=== PATIENT | female | born 1980 | race Hispanic/Latino ===

== ENCOUNTER 2021-02-21 14:43 | Emergency (ER) | payer OTHER ==
[~2021-02-21] VITALS: Ht 157.5 cm; Wt 89.8 kg
[2021-02-21] MEDS ORDERED: KETOROLAC TROMETHAMINE 30 MG/ML VIAL IV STA (15:04)
[2021-02-21] MEDS ORDERED: ONDANSETRON HCL INJ 2MG/ML 2ML 2 MG/ML VIAL IV STA (15:04)
[2021-02-21] MEDS ORDERED: ONDANSETRON HCL INJ 2MG/ML 2ML 2 MG/ML VIAL ONE (15:23)
[2021-02-21] MEDS ORDERED: KETOROLAC TROMETHAMINE 30 MG/ML VIAL ONE (15:23)
[2021-02-21] MEDS ORDERED: DIATRIZOATE MEGL/DIATRIZOA SOD 30 ML BTL PO ONE (15:25)
[2021-02-21] MEDS ORDERED: IOPAMIDOL 370 MG/ML 200 ML INFUS..BTL INJ ONE (15:25)
[2021-02-21] MEDS ORDERED: NITROGLYCERIN/D5W 200 MCG/ML 0 ML ONE (15:26)
[2021-02-21] MEDS ORDERED: SODIUM CHLORIDE 0.9% 50ML 50 ML ONE (15:26)
[2021-02-21 18:25] VITALS: BP 118/82
[2021-02-21] MEDS ORDERED: IBUPROFEN600 MG PO (18:25)
[2021-02-21] MEDS ORDERED: ONDANSETRON ODT4 MG PO (18:25)
== END 2021-02-21 18:27 | disposition home or self-care (01) ==
LOC: FSED 14:48
DX: R10.31 Right lower quadrant pain (principal); R50.9 Fever, unspecified; E11.9 Type 2 diabetes mellitus without complications; Z98.84 Bariatric surgery status
CPT/HCPCS: 74177; 81003; 99283; J1885; J2405; Q9967